=== PATIENT | female | born 1985 | race Caucasian/White ===

== ENCOUNTER 2020-01-09 08:20 | Day surgery (SDC) | payer OTHER ==
[~2020-01-09 08:20] MED LIST: Lidocaine 2% 5 ML SDV ONE; Midazolam 1 MG/ML 2 ML SDV ONE; Ondansetron 4 MG/2 ML SDV ONE; Propofol 200 MG/20 ML SDV ONE; fentaNYL 250 MCG/5 ML SDV ONE
[2020-01-09] MEDS ORDERED: Lactated Ringers 1,000 ML IV SCH (09:00)
--- NOTE | 2020-01-09 09:07 | PCM.PREANE ---
Preanesthetic Assessment - Anesthesia/Transfusion/Family Hx Anesthesia History: Prior Anesthesia Without Reaction Family History of Anesthesia Reaction: No Transfusion History: No Prior Transfusion(s) Intubation History: Unknown - Review of Systems General: No Symptoms Pulmonary: No Symptoms Cardiovascular: No Symptoms Gastrointestinal: No Symptoms Neurological: No Symptoms Other: Reports: None - Physical Assessment Vital Signs: Last Vital Signs Temp 36.5 C 01/09/20 08:29 Pulse 57 L 01/09/20 08:29 Resp 16 01/09/20 08:29 BP 109/67 01/09/20 08:29 Pulse Ox 98 01/09/20 08:29 Height: 5 ft 4 in Weight: 58.967 kg ASA Class: 2 Mental Status: Alert & Oriented x3 Airway Class: Mallampati = 2 Dentition: Reports: Normal Dentition Thyro-Mental Finger Breadths: 3 Mouth Opening Finger Breadths: 3 ROM/Head Extension: Full Lungs: Clear to Auscultation, Normal Respiratory Effort Cardiovascular: Regular Rate, Regular Rhythm - Lab Values: Laboratory Last Values WBC 4.79 K/uL (4.0-11.0) 01/09/20 08:42 RBC 3.74 M/uL (4.30-5.90) L 01/09/20 08:42 Hgb 12.2 g/dL (12.0-16.0) 01/09/20 08:42 Hct 36.8 % (36.0-46.0) 01/09/20 08:42 MCV 98.4 fL (80.0-98.0) H 01/09/20 08:42 MCH 32.6 pg (27.0-32.0) H 01/09/20 08:42 MCHC 33.2 g/dL (31.0-37.0) 01/09/20 08:42 RDW Std Deviation 46.2 fl (28.0-62.0) 01/09/20 08:42 RDW Coeff of Ángel 13 % (11.0-15.0) 01/09/20 08:42 Plt Count 228 K/uL (150-400) 01/09/20 08:42 MPV 8.70 fL (7.40-12.00) 01/09/20 08:42 Nucleated RBC % 0.0 /100WBC 01/09/20 08:42 Nucleated RBCs # 0 K/uL 01/09/20 08:42 - Allergies Allergies/Adverse Reactions: Allergies Allergy/AdvReac Type Severity Reaction Status Date / Time amoxicillin Allergy "I get Verified 01/05/20 08:25 ulcers in my mouth" - Blood Blood Available: No - Anesthesia Plan Pre-Op Medication Ordered: None - Acknowledgements Anesthesia Type Planned: General Anesthesia Pt an Appropriate Candidate for the Planned Anesthesia: Yes Alternatives and Risks of Anesthesia Discussed w Pt/Guardian: Yes Pt/Guardian Understands and Agrees with Anesthesia Plan: Yes PreAnesthesia Questionnaire HEENT History: Reports: None Cardiovascular History: Reports: None Respiratory History: Reports: None Gastrointestinal History: Reports: None Genitourinary History: Reports: None 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 SPECIALIST History: Reports: , Other (See Below) (missed ) Musculoskeletal History: Reports: None Neurological History: Reports: Migraines Psychiatric History: Reports: Anxiety, Depression Endocrine/Metabolic History: Reports: None Hematologic History: Reports: None Immunologic History: Reports: None Oncologic (Cancer) History: Reports: None Dermatologic History: Reports: None - Past Surgical History Head Surgeries/Procedures: Reports: None HEENT Surgical History: Reports: Oral Surgery Cardiovascular Surgical History: Reports: None Respiratory Surgical History: Reports: None GI Surgical History: Reports: None Female Surgical History: Reports: Section (x2), Other (See Below) (colposcopy) Endocrine Surgical History: Reports: None Neurological Surgical History: Reports: None Musculoskeletal Surgical History: Reports: None Oncologic Surgical History: Reports: None Dermatological Surgical History: Reports: None - SUBSTANCE USE Smoking Status *Q: Former Smoker (quit 10 years ago) Tobacco Use Within Last Twelve Months: No - HOME MEDS Home Medications: Home Meds Sertraline HCl [Zoloft] 50 mg PO DAILY 01/05/20 [History] - CURRENT (IN HOUSE) MEDS Current Meds: Current Medications Lactated Ringer's (Ringers, Lactated) 1,000 mls @ 125 mls/hr IV ASDIRECTED JENNIFER Discontinued Medications Fentanyl (Sublimaze) Confirm Administered Dose 250 mcg .ROUTE .STK-MED ONE Stop: 01/09/20 07:16 Lidocaine (Xylocaine-Mpf 2%) Confirm Administered Dose 5 ml .ROUTE .STK-MED ONE Stop: 01/09/20 07:16 Midazolam HCl (Versed 1 Mg/Ml) Confirm Administered Dose 2 mg .ROUTE .STK-MED ONE Stop: 01/09/20 07:16 Ondansetron HCl (Zofran) Confirm Administered Dose 4 mg .ROUTE .STK-MED ONE Stop: 01/09/20 07:16 Propofol (Diprivan 20 Ml) Confirm Administered Dose 200 mg .ROUTE .STK-MED ONE Stop: 01/09/20 07:16
[2020-01-09] MEDS ORDERED: Glycopyrrolate 0.2 MG/ML SDV ONE ×2 (09:31→09:33)
[2020-01-09] MEDS ORDERED: 50% Dextrose in Water 50 ML Syringe IVPUSH PRN (09:40)
[2020-01-09] MEDS ORDERED: EPINEPHrine 1:10,000 1 MG/10 ML Syringe IVPUSH PRN (09:40)
[2020-01-09] MEDS ORDERED: fentaNYL 100 MCG/2 ML SDV IVPUSH PRN (09:40)
[2020-01-09] MEDS ORDERED: Albuterol 0.083% 2.5 MG/3 ML Neb Soln NEB PRN (09:40)
[2020-01-09] MEDS ORDERED: Atropine 0.1 MG/ML 10 ML Syringe IVPUSH PRN ×2 (09:40)
[2020-01-09] MEDS ORDERED: Naloxone 0.4 MG/ML Syringe IVPUSH PRN (09:40)
[2020-01-09] MEDS ORDERED: Ketorolac 30 MG/ML SDV ONE (09:50)
--- NOTE | 2020-01-09 10:06 | PCM.OPNOTE ---
- General Post-Op/Procedure Note Date of Surgery/Procedure: 01/09/20 Operative Procedure(s): Suction dilation and curettage Findings: 7 week size, anteverted uterus Pre Op Diagnosis: Missed Post-Op Diagnosis: Missed Anesthesia Technique: General LMA Primary Surgeon: Emely Guerra Pathology: Products of conception Fluid Replacement, Intraop: 1,000 Output, Urine Amount: 25 EBL in mLs: 10 Condition: Good Free Text/Narrative:: Intake & Output 01/08/20 01/09/20 01/09/20 22:59 06:59 14:59 Output Total 50 Balance -50
--- NOTE | 2020-01-09 10:19 | PCM.POSTAN ---
POST ANESTHESIA ASSESSMENT - MENTAL STATUS Mental Status: Alert, Oriented - VITAL SIGNS Vital Signs: Last Vital Signs Temp 36.1 C 01/09/20 09:55 Pulse 85 01/09/20 10:11 Resp 16 01/09/20 10:11 BP 98/60 01/09/20 10:11 Pulse Ox 98 01/09/20 10:11 - RESPIRATORY Respiratory Status: Respiratory Rate WNL, Airway Patent, O2 Saturation Stable - CARDIOVASCULAR CV Status: Pulse Rate WNL, Blood Pressure Stable - GASTROINTESTINAL GI Status: No Symptoms - PAIN Pain Score: 0 - POST OP HYDRATION Hydration Status: Adequate & Stable - OBSERVATIONS Free Text/Narrative:: No anesthesia problems
--- NOTE | 2020-01-09 10:46 | PCM48HPAN ---
Post Anesthesia Note - EVALUATION WITHIN 48HRS OF ANESTHETIC Vital Signs in Normal Range: Yes Patient Participated in Evaluation: Yes Respiratory Function Stable: Yes Airway Patent: Yes Cardiovascular Function Stable: Yes Hydration Status Stable: Yes Pain Control Satisfactory: Yes Nausea and Vomiting Control Satisfactory: Yes Mental Status Recovered: Yes Vital Signs: Last Vital Signs Temp 36.1 C 01/09/20 09:55 Pulse 85 01/09/20 10:11 Resp 16 01/09/20 10:11 BP 98/60 01/09/20 10:11 Pulse Ox 98 01/09/20 10:11 - COMMENTS/OBSERVATIONS Free Text/Narrative:: No anesthesia problems
--- NOTE | 2020-01-09 17:56 | OR ---
DATE OF PROCEDURE: 01/09/2020 PREOPERATIVE DIAGNOSIS: 7-week missed . POSTOPERATIVE DIAGNOSIS: 7-week missed . PROCEDURE: Suction dilation and curettage. PRIMARY SURGEON: Emely Guerra MD HAY FARMER: ZARI Pavon. ANESTHESIA: LMA. COMPLICATIONS: None. ESTIMATED BLOOD LOSS: 10 mL. INTRAVENOUS FLUIDS: 1000 mL of crystalloid. URINE OUTPUT: 25 mL, straight catheterized prior to the procedure. FINDINGS: 7-week size anteverted uterus. PATHOLOGY: Products of conception. DESCRIPTION OF PROCEDURE: The patient was taken to the operating room where anesthesia was induced. She was then prepped and draped in the dorsal lithotomy position. An open-sided Graves speculum was placed into the vagina to visualize the cervix. An Allis clamp was used to grasp the cervix at 12 o'clock, and series of Hegar dilators were used to dilate the cervix to Hegar 8. During dilation, the Allis clamp inadvertently slipped off the cervix, and a tenaculum was used in its place to stabilize the cervix to complete dilation. A #8 curved suction curette was advanced to the fundus. It was attached to suction and rotated to clear the uterus of products of conception. A sharp curettage was performed until a gritty texture was noted. A suction curettage was then performed once more. Minimal bleeding was noted, and the tenaculum was removed with good hemostasis. The patient tolerated the procedure well. Sponge, lap, and needle counts were correct x2. The patient was taken to recovery in stable condition. [place] / JIHAN /[id number] MTDChandler
== END 2020-01-09 10:50 | disposition home or self-care (01) ==
LOC: MW.SDS 08:20
PROVIDERS: ATTEND Obstetrics & Gynecology
DX: O02.89 Other abnormal products of conception (principal); F41.9 Anxiety disorder, unspecified; F32.9 Major depressive disorder, single episode, unspecified; Z88.0 Allergy status to penicillin; Z87.891 Personal history of nicotine dependence; Z79.899 Other long term (current) drug therapy
CPT/HCPCS: 36415; 59820; 85027; 88233; 88305; J1885; J2001; J2250; J2405; J2704; J3010; J3490; J7120; 01965

== ENCOUNTER 2020-02-27 22:01 | Emergency (ER) | payer OTHER ==
[2020-02-27] MEDS ORDERED: Sodium Chloride 0.9% 2.5 ML Syringe FLUSH PRN (22:29)
[2020-02-27] MEDS ORDERED: Sodium Chloride 0.9% 10 ML Syringe FLUSH PRN (22:29)
--- NOTE | 2020-02-27 22:31 | EDM.PDOC ---
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 Bright red blood was gushing from her vagina. She did not feel like there was any injury. She is continue to have blood flow but not "gushing"-she does feel a little hot when she stands up but has not had any syncope or near syncope. She does feel little lightheaded. Finished her menstrual period The patient thought she had finished her menstrual period earlier today. In the beginning of January she had an 8-week and the ultrasound showed it to be 7 weeks with some detachment of the placenta. She went ahead and had an incomplete miscarriage and had a D&C subsequently. She had been given RhoGam in the past but they elected not to give her RhoGam this time because of the early nature of the according to the patient. Review of systems: As per history of present illness and below otherwise all systems reviewed and negative. Past medical history: As per history of present illness and as reviewed below otherwise noncontributory. Surgical history: As per history of present illness and as reviewed below otherwise noncontributory. Social history: No reported history of drug or alcohol abuse. Family history: As per history of present illness and as reviewed below otherwise noncontributory. Physical exam: Constitutional - well developed, well-nourished and in no acute distress HEENT - normocephalic, no evidence of trauma - external nose and mouth normal - no mass in neck and no JVD - mucosae moist EYES - full EOM, PERRL, no icterus - no evidence of inflammation, injection, or drainage Respiratory - no respiratory distress, equal bilateral expansion MACARONI MAKER -BUS normal-scant blood in the vagina. Speculum exam was done and there is no active bleeding and no laceration. Musculoskeletal no gross deformity of long bones or joints - no tenderness, swelling or edema Neurologic - Alert and oriented times four - CN II-XII grossly intact - motor sensory and coordination symmetrically normal Psychiatric - appropriate mood and affect with normal thought content Hematologic - No petechiae or purpura - mucosa appropriate color and sclera not pale - normal nail bed color and refill Integument - no rash or evidence of trauma - normal turgor Diagnostics: [] Therapeutics: [] Impression: [] Plan: [] Definitive disposition and diagnosis as appropriate pending reevaluation and review of above. 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: , Spontaneous Musculoskeletal History: Reports: None Neurological History: Reports: Migraines Psychiatric History: Reports: Anxiety, Depression Endocrine/Metabolic History: Reports: None Insulin Pump Model and Laboratory Associate: None Hematologic History: Reports: None Immunologic History: Reports: None Oncologic (Cancer) History: Reports: None Dermatologic History: Reports: None - Infectious Disease History Infectious Disease History: Reports: None - Past Surgical History Head Surgeries/Procedures: Reports: None HEENT Surgical History: Reports: Oral Surgery Cardiovascular Surgical History: Reports: None Respiratory Surgical History: Reports: None GI Surgical History: Reports: None Female Surgical History: Reports: Section Endocrine Surgical History: Reports: None Neurological Surgical History: Reports: None Musculoskeletal Surgical History: Reports: None Oncologic Surgical History: Reports: None Dermatological Surgical History: Reports: None Social & Family History - Family History Family Medical History: Noncontributory - Tobacco Use Tobacco Use Status *Q: Never Tobacco User - Caffeine Use Caffeine Use: Reports: Coffee - Recreational Drug Use Recreational Drug Use: No ED ROS GENERAL - Review of Systems Review Of Systems: Comprehensive ROS is negative, except as noted in HPI. ED EXAM, GENERAL - Physical Exam Exam: See Below Free Text/Narrative:: My physical exam is in the HPI Course - Vital Signs Text/Narrative:: 12:02 AM the patient is a hCG of 6.0 which is almost certainly residual from the recent D&C. She apparently did not have a complete never uterus with the current menstrual period and the other plug of the cervix was broken up during routine and painless sexual intercourse. The patient will be advised to have an hCG repeated in 2 or more days to make sure that there is no possibility of retained products Last Recorded V/S: Last Vital Signs Temp 96.7 F L 02/27/20 22:15 Pulse 76 02/27/20 23:30 Resp 18 02/27/20 23:30 BP 102/66 02/27/20 23:30 Pulse Ox 96 02/27/20 23:30 - Orders/Labs/Meds Orders: Active Orders 24 hr Category Date Time Status Communication Order [RC] STAT Care 02/27/20 22:29 Active Sodium Chloride 0.9% [Saline Flush] Med 02/27/20 22:29 Active 10 ml FLUSH ASDIRECTED PRN Sodium Chloride 0.9% [Saline Flush] Med 02/27/20 22:29 Active 2.5 ml FLUSH ASDIRECTED PRN Saline Lock Insert [OM.PC] Stat Oth 02/27/20 22:29 Ordered Medication Orders Sodium Chloride (Saline Flush) 10 ml FLUSH ASDIRECTED PRN PRN Reason: Keep Vein Open Sodium Chloride (Saline Flush) 2.5 ml FLUSH ASDIRECTED PRN PRN Reason: Keep Vein Open Labs: Laboratory Tests 02/27/20 02/27/20 02/27/20 Range/Units 22:37 22:37 22:37 WBC 7.01 (4.0-11.0) K/uL RBC 3.76 L (4.30-5.90) M/uL Hgb 12.5 (12.0-16.0) g/dL Hct 37.7 (36.0-46.0) % MCV 100.3 H (80.0-98.0) fL MCH 33.2 H (27.0-32.0) pg MCHC 33.2 (31.0-37.0) g/dL RDW Std Deviation 47.9 (28.0-62.0) fl RDW Coeff of Ángel 13 (11.0-15.0) % Plt Count 227 (150-400) K/uL MPV 8.60 (7.40-12.00) fL Neut % (Auto) 48.4 (48.0-80.0) % Lymph % (Auto) 43.8 H (16.0-40.0) % Braxton % (Auto) 5.8 (0.0-15.0) % Eos % (Auto) 1.9 (0.0-7.0) % Baso % (Auto) 0.1 (0.0-1.5) % Neut # (Auto) 3.4 (1.4-5.7) K/uL Lymph # (Auto) 3.1 H (0.6-2.4) K/uL Braxton # (Auto) 0.4 (0.0-0.8) K/uL Eos # (Auto) 0.1 (0.0-0.7) K/uL Baso # (Auto) 0.0 (0.0-0.1) K/uL Nucleated RBC % 0.0 /100WBC Nucleated RBCs # 0 K/uL Sodium 137 (136-145) mmol/L Potassium 3.3 L (3.5-5.1) mmol/L Chloride 103 (98-107) mmol/L Carbon Dioxide 23.3 (21.0-32.0) mmol/L BUN 18 (7.0-18.0) mg/dL Creatinine 0.6 (0.6-1.0) mg/dL Est Cr Clr Drug Dosing 115.16 mL/min Estimated GFR (MDRD) > 60.0 ml/min Glucose 106 (74-106) mg/dL Calcium 8.7 (8.5-10.1) mg/dL HCG, Qual POSITIVE H (NEG) HCG, Quant mIU/mL 02/27/20 Range/Units 22:37 WBC (4.0-11.0) K/uL RBC (4.30-5.90) M/uL Hgb (12.0-16.0) g/dL Hct (36.0-46.0) % MCV (80.0-98.0) fL MCH (27.0-32.0) pg MCHC (31.0-37.0) g/dL RDW Std Deviation (28.0-62.0) fl RDW Coeff of Ángel (11.0-15.0) % Plt Count (150-400) K/uL MPV (7.40-12.00) fL Neut % (Auto) (48.0-80.0) % Lymph % (Auto) (16.0-40.0) % Braxton % (Auto) (0.0-15.0) % Eos % (Auto) (0.0-7.0) % Baso % (Auto) (0.0-1.5) % Neut # (Auto) (1.4-5.7) K/uL Lymph # (Auto) (0.6-2.4) K/uL Braxton # (Auto) (0.0-0.8) K/uL Eos # (Auto) (0.0-0.7) K/uL Baso # (Auto) (0.0-0.1) K/uL Nucleated RBC % /100WBC Nucleated RBCs # K/uL Sodium (136-145) mmol/L Potassium (3.5-5.1) mmol/L Chloride (98-107) mmol/L Carbon Dioxide (21.0-32.0) mmol/L BUN (7.0-18.0) mg/dL Creatinine (0.6-1.0) mg/dL Est Cr Clr Drug Dosing mL/min Estimated GFR (MDRD) ml/min Glucose (74-106) mg/dL Calcium (8.5-10.1) mg/dL HCG, Qual (NEG) HCG, Quant 6.0 mIU/mL Meds: Medications Generic Name Dose Route Start Last Admin Trade Name Freq PRN Reason Stop Dose Admin Sodium Chloride 10 ml 02/27/20 22:29 Saline Flush FLUSH ASDIRECTED PRN Keep Vein Open Sodium Chloride 2.5 ml 02/27/20 22:29 Saline Flush FLUSH ASDIRECTED PRN Keep Vein Open Departure - Departure Time of Disposition: 00:05 Disposition: Home, Self-Care 01 Condition: Good Clinical Impression: Vaginal bleeding - Discharge Information Instructions: Abnormal Uterine Bleeding Referrals: PCP,None [Primary Care Provider] - Forms: ED Department Discharge Additional Instructions: Please have an hCG checked your clinic doctors in 2 or more days to make sure that the number is not rising. If it is rising it could indicate a new gestation or an incomplete believe all of the contents from the prior gestation from your uterus. Number tonight is 6.0 mIU/ml Return if you have fever feel like you are passing out a lot of sweating with weakness severe pain. [facility] [address] [place] [id number] [facility] [address] [address] The following information is given to patients seen in the emergency department who are being discharged to home. This information is to outline your options for follow-up care. We provide all patients seen in our emergency department with a follow-up referral. The need for follow-up, as well as the timing and circumstances, are variable depending upon the specifics of your emergency department visit. If you don't have a primary care physician on staff, we will provide you with a referral. We always advise you to contact your personal physician following an emergency department visit to inform them of the circumstance of the visit and for follow-up with them and/or the need for any referrals to a consulting specialist. The emergency department will also refer you to a specialist when appropriate. This referral assures that you have the opportunity for follow-up care with a specialist. All of these measure are taken in an effort to provide you with optimal care, which includes your follow-up. Under all circumstances we always encourage you to contact your private physician who remains a resource for coordinating your care. When calling for follow-up care, please make the office aware that this follow-up is from your recent emergency room visit. If for any reason you are refused follow-up, please contact the [facility] Emergency Department at and asked to speak to the emergency department charge nurse. Sepsis Event Note (ED) - Evaluation Sepsis Screening Result: No Definite Risk - Focused Exam Vital Signs: Vital Signs Temp Pulse Resp BP Pulse Ox 02/27/20 23:30 76 18 102/66 96 02/27/20 22:15 96.7 F L 79 18 115/78 98 - My Orders Last 24 Hours: My Active Orders 02/27/20 22:29 Communication Order [RC] STAT Sodium Chloride 0.9% [Saline Flush] 10 ml FLUSH ASDIRECTED PRN Sodium Chloride 0.9% [Saline Flush] 2.5 ml FLUSH ASDIRECTED PRN Saline Lock Insert [OM.PC] Stat - Assessment/Plan Last 24 Hours: My Active Orders 02/27/20 22:29 Communication Order [RC] STAT Sodium Chloride 0.9% [Saline Flush] 10 ml FLUSH ASDIRECTED PRN Sodium Chloride 0.9% [Saline Flush] 2.5 ml FLUSH ASDIRECTED PRN Saline Lock Insert [OM.PC] Stat
[2020-02-27 22:58] LABS: BLOOD UREA NITROGEN,BUN 18 mg/dL (7.0-18.0); CARBON DIOXIDE,CO2 23.3 mmol/L (21.0-32.0); CHLORIDE,CL 103 mmol/L (98-107); GLUCOSE RANDOM 106 mg/dL (74-106); POTASSIUM,K 3.3 mmol/L (3.5-5.1); SODIUM,NA 137 mmol/L (136-145)
== END 2020-02-28 00:19 | disposition home or self-care (01) ==
LOC: MW.ED 22:01
DX: N93.9 Abnormal uterine and vaginal bleeding, unspecified (principal); Z88.1 Allergy status to other antibiotic agents; F32.9 Major depressive disorder, single episode, unspecified; Z79.899 Other long term (current) drug therapy; F41.9 Anxiety disorder, unspecified
CPT/HCPCS: 36415; 80048; 84702; 84703; 85025; 99284

== ENCOUNTER 2020-03-19 06:57 | Day surgery (SDC) | payer OTHER ==
[~2020-03-19 06:57] MED LIST changes: +Lactated Ringers 1,000 ML IV SCH; -Lidocaine 2% 5 ML SDV ONE; -Midazolam 1 MG/ML 2 ML SDV ONE; -Ondansetron 4 MG/2 ML SDV ONE; -Propofol 200 MG/20 ML SDV ONE; -fentaNYL 250 MCG/5 ML SDV ONE
[2020-03-19] MEDS ORDERED: Lidocaine 2% 5 ML SDV ONE (07:01)
[2020-03-19] MEDS ORDERED: fentaNYL 250 MCG/5 ML SDV ONE (07:01)
[2020-03-19] MEDS ORDERED: Propofol 200 MG/20 ML SDV ONE (07:01)
[2020-03-19] MEDS ORDERED: Ondansetron 4 MG/2 ML SDV ONE (07:01)
[2020-03-19] MEDS ORDERED: Midazolam 1 MG/ML 2 ML SDV ONE (07:01)
[2020-03-19] MEDS ORDERED: Naloxone 0.4 MG/ML Syringe IVPUSH PRN (07:21)
[2020-03-19] MEDS ORDERED: Sodium Chloride 0.9% 10 ML Syringe FLUSH PRN (07:21)
[2020-03-19] MEDS ORDERED: EPINEPHrine 1:10,000 1 MG/10 ML Syringe IVPUSH PRN (07:21)
[2020-03-19] MEDS ORDERED: Albuterol 0.083% 2.5 MG/3 ML Neb Soln NEB PRN (07:21)
[2020-03-19] MEDS ORDERED: Atropine 0.1 MG/ML 10 ML Syringe IVPUSH PRN ×2 (07:21)
[2020-03-19] MEDS ORDERED: Sodium Chloride 0.9% 10 ML SDV IV PRN (07:21)
[2020-03-19] MEDS ORDERED: fentaNYL 100 MCG/2 ML SDV IVPUSH PRN (07:21)
[2020-03-19] MEDS ORDERED: Sodium Chloride 0.9% 2.5 ML Syringe FLUSH PRN (07:21)
[2020-03-19] MEDS ORDERED: 50% Dextrose in Water 50 ML Syringe IVPUSH PRN (07:21)
--- NOTE | 2020-03-19 07:21 | PCM.PREANE ---
Preanesthetic Assessment - Anesthesia/Transfusion/Family Hx Anesthesia History: Prior Anesthesia Without Reaction Family History of Anesthesia Reaction: No Transfusion History: No Prior Transfusion(s) Intubation History: Unknown - Review of Systems General: No Symptoms Pulmonary: No Symptoms Cardiovascular: No Symptoms Gastrointestinal: No Symptoms Neurological: No Symptoms Other: Reports: None - Physical Assessment Height: 5 ft 4 in Weight: 59.421 kg ASA Class: 2 Mental Status: Alert & Oriented x3 Airway Class: Mallampati = 1 Dentition: Reports: Normal Dentition Thyro-Mental Finger Breadths: 3 Mouth Opening Finger Breadths: 3 ROM/Head Extension: Full Lungs: Clear to Auscultation, Normal Respiratory Effort Cardiovascular: Regular Rate, Regular Rhythm - Allergies Allergies/Adverse Reactions: Allergies Allergy/AdvReac Type Severity Reaction Status Date / Time amoxicillin Allergy "I get Verified 03/14/20 09:17 ulcers in my mouth" - Blood Blood Available: No - Anesthesia Plan Pre-Op Medication Ordered: None - Acknowledgements Anesthesia Type Planned: General Anesthesia Pt an Appropriate Candidate for the Planned Anesthesia: Yes Alternatives and Risks of Anesthesia Discussed w Pt/Guardian: Yes Pt/Guardian Understands and Agrees with Anesthesia Plan: Yes PreAnesthesia Questionnaire HEENT History: Reports: None Cardiovascular History: Reports: None Respiratory History: Reports: None Gastrointestinal History: Reports: None Genitourinary History: Reports: None 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: , 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 (2-3 weeks ago) Musculoskeletal History: Reports: None Neurological History: Reports: Migraines Psychiatric History: Reports: Anxiety, Depression Endocrine/Metabolic History: Reports: None Hematologic History: Reports: None Immunologic History: Reports: None Oncologic (Cancer) History: Reports: None Dermatologic History: Reports: None - Infectious Disease History Infectious Disease History: Reports: None - Past Surgical History Head Surgeries/Procedures: Reports: None HEENT Surgical History: Reports: Oral Surgery Cardiovascular Surgical History: Reports: None Respiratory Surgical History: Reports: None GI Surgical History: Reports: None Female Surgical History: Reports: Section (x2), D&C (01/20), Other (See Below) (colposcopy) Endocrine Surgical History: Reports: None Neurological Surgical History: Reports: None Musculoskeletal Surgical History: Reports: None Oncologic Surgical History: Reports: None Dermatological Surgical History: Reports: None - SUBSTANCE USE Tobacco Use Status *Q: Former Tobacco User (quit ') Tobacco Use Within Last Twelve Months: No - HOME MEDS Home Medications: Home Meds Sertraline HCl [Zoloft] 50 mg PO DAILY 01/05/20 [History] Vitamin Pack 1 pack PO DAILY 03/14/20 [History] - CURRENT (IN HOUSE) MEDS Current Meds: Current Medications Lactated Ringer's (Ringers, Lactated) 1,000 mls @ 125 mls/hr IV ASDIRECTED JENNIFER Discontinued Medications Fentanyl (Sublimaze) Confirm Administered Dose 250 mcg .ROUTE .STK-MED ONE Stop: 03/19/20 07:02 Lidocaine (Xylocaine-Mpf 2%) Confirm Administered Dose 5 ml .ROUTE .STK-MED ONE Stop: 03/19/20 07:02 Midazolam HCl (Versed 1 Mg/Ml) Confirm Administered Dose 2 mg .ROUTE .STK-MED ONE Stop: 03/19/20 07:02 Ondansetron HCl (Zofran) Confirm Administered Dose 4 mg .ROUTE .STK-MED ONE Stop: 03/19/20 07:02 Propofol (Diprivan 20 Ml) Confirm Administered Dose 200 mg .ROUTE .STK-MED ONE Stop: 03/19/20 07:02
[2020-03-19] MEDS ORDERED: Lactated Ringers 1,000 ML IV SCH (07:30)
[2020-03-19] MEDS ORDERED: Glycopyrrolate 0.2 MG/ML SDV ONE ×2 (08:04→08:07)
--- NOTE | 2020-03-19 09:00 | PCM.OPNOTE ---
- General Post-Op/Procedure Note Date of Surgery/Procedure: 03/19/20 Operative Procedure(s): Hysteroscopy dilation and curettage. Myosure Findings: Anteverted uterus sounded to 9cm. Tissue consistent with retained products of conception adhered to the anterior uterine wall within the lower uterine segment. Right and left cornea visualized. Pre Op Diagnosis: Abnormal vaginal bleeding after missed Post-Op Diagnosis: Same Anesthesia Technique: General LMA Primary Surgeon: Emely Guerra Anesthesia Provider: Vel Sandhu Airplane Pilot Photogrammetry: Carl Tobin Pathology: Endometrial contents Fluid Replacement, Intraop: 700 EBL in mLs: 10 Drain/Tube Comments:: 900cc deficit from hysteroscopy and Myosure procedures Complications: None known Condition: Good Free Text/Narrative:: Dictation #[id number]
[2020-03-19] MEDS ORDERED: Meperidine PF 25 MG/ML Syringe IVPUSH ONE (09:04)
[2020-03-19] MEDS ORDERED: Meperidine PF 25 MG/ML Syringe ONE (09:06)
--- NOTE | 2020-03-19 09:19 | PCM.POSTAN ---
POST ANESTHESIA ASSESSMENT - MENTAL STATUS Mental Status: Alert, Oriented - VITAL SIGNS Vital Signs: Last Vital Signs Temp 36.2 C 03/19/20 08:47 Pulse 97 03/19/20 09:13 Resp 17 03/19/20 09:13 BP 109/82 03/19/20 09:13 Pulse Ox 99 03/19/20 09:13 - RESPIRATORY Respiratory Status: Respiratory Rate WNL, Airway Patent, O2 Saturation Stable - CARDIOVASCULAR CV Status: Pulse Rate WNL, Blood Pressure Stable - GASTROINTESTINAL GI Status: No Symptoms - PAIN Pain Score: 0 - POST OP HYDRATION Hydration Status: Adequate & Stable - OBSERVATIONS Free Text/Narrative:: NO anesthesia problems
[2020-03-19] MEDS ORDERED: Acetaminophen/oxyCODONE 325-5 MG Tab PO PRN (09:46)
[2020-03-19] MEDS ORDERED: Acetaminophen/oxyCODONE 325-5 MG Tab ONE (09:49)
--- NOTE | 2020-03-19 10:04 | PCM48HPAN ---
Post Anesthesia Note - EVALUATION WITHIN 48HRS OF ANESTHETIC Vital Signs in Normal Range: Yes Patient Participated in Evaluation: Yes Respiratory Function Stable: Yes Airway Patent: Yes Cardiovascular Function Stable: Yes Hydration Status Stable: Yes Pain Control Satisfactory: Yes Nausea and Vomiting Control Satisfactory: Yes Mental Status Recovered: Yes Vital Signs: Last Vital Signs Temp 36.2 C 03/19/20 08:47 Pulse 97 03/19/20 09:13 Resp 17 03/19/20 09:13 BP 109/82 03/19/20 09:13 Pulse Ox 99 03/19/20 09:13 - COMMENTS/OBSERVATIONS Free Text/Narrative:: No anesthesia problems
--- NOTE | 2020-03-19 10:48 | OR ---
SURGEON: EMELY GUERRA MD DATE OF PROCEDURE: 03/19/2020 PREOPERATIVE DIAGNOSIS: Abnormal uterine bleeding following missed . POSTOPERATIVE DIAGNOSIS: Abnormal uterine bleeding following missed . PROCEDURES: 1. Hysteroscopy, dilation and curettage. 2. MyoSure curettage. PRIMARY SURGEON: Emely Guerra MD MANAGER DATA: Dr. Carl Tobin. ANESTHESIA: LMA. COMPLICATIONS: None. ESTIMATED BLOOD LOSS: 10 mL. IV FLUIDS: 700 mL of crystalloid. FLUID DEFICIT FROM PROCEDURE: 900 mL. FINDINGS: Anteverted uterus sounded to 9 cm. Tissue consistent with retained products of contraception, noted at the anterior uterine wall within the lower uterine segment. Right and left cornua were visualized. PATHOLOGY: Endometrial contents. DESCRIPTION OF PROCEDURE: The patient was taken to the operating room where anesthesia was introduced. She was then prepped and draped in the dorsal lithotomy position. Bimanual exam was performed. A weighted speculum and anterior retractor were then used to visualize the cervix and it was grasped with an Allis at the 6 o'clock position due to the anteverted nature of the uterus. Uterus was then sounded to 9 cm and cervix dilated to 8 Hegar. The hysteroscope was then inserted into the cervix and the uterus. Right and left ostia were visualized. MyoSure was then inserted through the hysteroscope and the tissue from the anterior portion of the lower uterine segment was removed. The hysteroscope was then removed after hemostasis was assured. Light, sharp curettage was then performed until a gritty texture was noted. Endometrial contents were sent to Pathology. Bleeding was minimal. All instruments were removed from the vagina. Hemostasis was noted. The patient tolerated the procedure well. Sponge, lap, and needle counts were correct x2. The patient was taken to recovery room in stable condition. [place] / JIHAN /[id number] DIDI
== END 2020-03-19 10:04 | disposition home or self-care (01) ==
LOC: MW.SDS 06:57
PROVIDERS: ATTEND Obstetrics & Gynecology
DX: O02.1 Missed abortion (principal); F32.9 Major depressive disorder, single episode, unspecified; F41.9 Anxiety disorder, unspecified; Z79.899 Other long term (current) drug therapy; Z98.890 Other specified postprocedural states; Z87.891 Personal history of nicotine dependence; Z88.1 Allergy status to other antibiotic agents
CPT/HCPCS: 58558; 84703; 85027; A9270; J2001; J2175; J2250; J2405; J2704; J3010; J3490; J7120; 00952; 88305

== ENCOUNTER 2020-06-23 14:48 | Emergency (ER) | payer BC ==
[2020-06-23] MEDS ORDERED: Sodium Chloride 0.9% 1,000 ML IV ONE (14:53)
[2020-06-23] MEDS ORDERED: Sodium Chloride 0.9% 2.5 ML Syringe FLUSH PRN (14:53)
[2020-06-23] MEDS ORDERED: Sodium Chloride 0.9% 10 ML Syringe FLUSH PRN (14:53)
--- NOTE | 2020-06-23 15:11 | EDM.PDOC ---
ED HPI GENERAL MEDICAL PROBLEM - General Chief Complaint: IT BUSINESS PROCESS ARCHITECT Problem Stated Complaint: BLEEDING 13 WEEKS Time Seen by Provider: 06/23/20 14:52 Source of Information: Reports: Patient History Limitations: Reports: No Limitations - History of Present Illness INITIAL COMMENTS - FREE TEXT/NARRATIVE: HISTORY AND PHYSICAL: History of present illness: Patient is a 34-year-old female who presents to the emergency room with complaints of painless vaginal bleeding. She states she is approximately 12 weeks , has had high risk pregnancies in the past due to multiple miscarriages. This morning she went to the bathroom and had a "gush of blood" as she was voiding. She did call the on-call IT BUSINESS PROCESS ARCHITECT for recommendations, she was encouraged to rest the remainder of the day. After she had a second episode of bleeding when she went to the bathroom she decided to come to the emergency room for evaluation. She did have some brown discharge approximately 1 week ago and was seen in the IT BUSINESS PROCESS ARCHITECT clinic, she was informed she had the start of a yeast infection. She did do 1 vaginal insert of Monistat. The on-call provider today thought maybe the bleeding was from irritation. She denies any recent pelvic injury or vigorous intercourse. Patient denies any fever, chills, headache, change in vision, syncope or near syncope. Denies any chest pain, back pain, shortness of breath or cough. Denies any abdominal pain, nausea, vomiting, diarrhea, constipation or dysuria. Patient has been eating and drinking appropriately. Review of systems: As per history of present illness and below otherwise all systems reviewed and negative. Past medical history: As per history of present illness and as reviewed below otherwise noncontributory. Surgical history: As per history of present illness and as reviewed below otherwise noncontributory. Social history: See social history for further information Family history: As per history of present illness and as reviewed below otherwise noncontributory. Physical exam: General: Well developed and well nourished. Alert and orientated x 3. Nontoxic in appearance and in no acute distress. Vital signs are stable and have been reviewed by me. Nursing notes were reviewed. HEENT: Atraumatic, normocephalic, pupils equal and reactive bilaterally, negative for conjunctival pallor or scleral icterus, mucous membranes moist, TMs normal bilaterally, throat clear, neck supple, nontender, trachea midline. No drooling or trismus noted. No meningeal signs. No hot potato voice noted. Lungs: Clear to auscultation bilaterally. No wheezes, rales, or rhonchi. Chest nontender. Normal work of breathing, no accessory muscles used. Heart: S1S2, regular rate and rhythm without overt murmur, gallops, or rubs. No JVD. No peripheral edema Abdomen: Soft, nondistended, nontender. Normoactive bowel sounds. Negative for masses or costovertebral tenderness. Pelvis: Stable nontender. Genitourinary/Rectal: This was done with consent and a cad administrator at the bedside. There is a small amount of blood in the vaginal vault. Her cervical os is closed without any active bleeding. No cervical motion tenderness. Skin: Intact, warm, dry. No lesions or rashes noted. Hematologic: No petechiae or purpra. Mucosa appropriate color and normal nail bed color and refill. Extremities: Atraumatic, moves all extremities per self without difficulty or deficits, negative for cords or calf pain. Neurovascular unremarkable. Neuro: Awake, alert, oriented. Cranial nerves II through XII unremarkable. Cerebellum unremarkable. Motor and sensory unremarkable throughout. Exam nonfocal. Psychiatric: Mood and affect are appropriate. Normal thought process. Answering questions appropriately. Notes: *This patient was seen and evaluated during the 2019 SARS-CoV-2 novel coronavirus pandemic period. Community viral transmission is ongoing at time of this encounter and the emergency department is operating under pandemic response procedures. Patient is A negative, requiring rhogam. Quant HCG 63843.0 today Ultrasound shows a live intrauterine gestation with crown-rump length measuring 5.9 centimeters corresponding to 12 weeks 3 days TOMA of 01/02/2021. Positive cardiac activity measures 129 beats per minute. Moderate perigestational hemorrhage with hemorrhage located along the placental margin. Recommend close follow-up. I called Dr Niurka Veloz [facility] on-call who is aware of today's findings. Patient is safe to be discharged home with close follow-up. She states she will call patient tomorrow to set up a follow up appointment. I have talked with the patient about today's findings, in addition to providing specific details for plan of care. Rhogam was given. VSS. Reassessment at the time of disposition demonstrates that the patient is in no acute distress. The patient is stable for discharge, counseling was provided and we discussed in great detail signs and symptoms that would prompt them to return to the [facility]. Medication, follow up and supportive care measures were reviewed and discussed. Voices understanding and is agreeable to plan of care. Denies any further questions or concerns at this time. Diagnostics: CBC, CMP, OB U/S, UA, Quant HCG, Rh/AB Therapeutics: Rhogam Prescription: None Impression: Threatened miscarriage Plan: 1. Please start and/or continue to take your vitamin with folic acid once daily. 2. Pelvic rest until cleared by your OBGYN (no tampons, sex, etc...) 3. Tylenol as needed for pain management. 4. Follow up with your IT BUSINESS PROCESS ARCHITECT in the next 1-2 days. Their office should be calling you tomorrow morning to set up your appointment. 5. As we discussed, please return to the ED if your symptoms should worsen, new symptoms develop or anything should change. Definitive disposition and diagnosis as appropriate pending reevaluation and review of above. - Related Data Allergies Allergy/AdvReac Type Severity Reaction Status Date / Time amoxicillin Allergy "I get Verified 06/23/20 14:57 ulcers in my mouth" Home Meds: Home Meds Sertraline HCl [Zoloft] 50 mg PO DAILY 01/05/20 [History] Vitamin Pack 1 pack PO DAILY 03/14/20 [History] Past Medical History HEENT History: Reports: None Cardiovascular History: Reports: None Respiratory History: Reports: None Gastrointestinal History: Reports: None Genitourinary History: Reports: None IT BUSINESS PROCESS ARCHITECT History: Reports: , Spontaneous Musculoskeletal History: Reports: None Neurological History: Reports: Migraines Psychiatric History: Reports: Anxiety, Depression Endocrine/Metabolic History: Reports: None Insulin Pump Model and File Keeper: None Hematologic History: Reports: None Immunologic History: Reports: None Oncologic (Cancer) History: Reports: None Dermatologic History: Reports: None - Infectious Disease History Infectious Disease History: Reports: None - Past Surgical History Head Surgeries/Procedures: Reports: None HEENT Surgical History: Reports: Oral Surgery Cardiovascular Surgical History: Reports: None Respiratory Surgical History: Reports: None GI Surgical History: Reports: None Female Surgical History: Reports: Section, D&C, Other (See Below) Endocrine Surgical History: Reports: None Neurological Surgical History: Reports: None Musculoskeletal Surgical History: Reports: None Oncologic Surgical History: Reports: None Dermatological Surgical History: Reports: None Social & Family History - Family History Family Medical History: No Pertinent Family History - Caffeine Use Caffeine Use: Reports: Coffee ED ROS GENERAL - Review of Systems Review Of Systems: Comprehensive ROS is negative, except as noted in HPI. ED EXAM - Physical Exam Exam: See Below (See dictation) Course - Vital Signs Last Recorded V/S: Last Vital Signs Temp 97 F 06/23/20 14:57 Pulse 80 06/23/20 14:57 Resp 16 06/23/20 14:57 BP 112/53 L 06/23/20 14:57 Pulse Ox 97 06/23/20 14:57 - Orders/Labs/Meds Orders: Active Orders 24 hr Category Date Time Status RH IMMUNE GLOBULIN [BBK] Stat Lab 06/23/20 15:30 Results RHOGAM, [RHIG WORKUP, ] [BBK] Stat Lab 06/23/20 15:30 Results Labs: Laboratory Tests 06/23/20 06/23/20 06/23/20 Range/Units 15:01 15:30 15:30 WBC 8.11 (4.0-11.0) K/uL RBC 3.73 L (4.30-5.90) M/uL Hgb 12.5 (12.0-16.0) g/dL Hct 36.4 (36.0-46.0) % MCV 97.6 (80.0-98.0) fL MCH 33.5 H (27.0-32.0) pg MCHC 34.3 (31.0-37.0) g/dL RDW Std Deviation 45.4 (28.0-62.0) fl RDW Coeff of Ángel 13 (11.0-15.0) % Plt Count 277 (150-400) K/uL MPV 8.60 (7.40-12.00) fL Neut % (Auto) 67.0 (48.0-80.0) % Lymph % (Auto) 25.3 (16.0-40.0) % Stearns % (Auto) 7.0 (0.0-15.0) % Eos % (Auto) 0.6 (0.0-7.0) % Baso % (Auto) 0.1 (0.0-1.5) % Neut # (Auto) 5.4 (1.4-5.7) K/uL Lymph # (Auto) 2.1 (0.6-2.4) K/uL Stearns # (Auto) 0.6 (0.0-0.8) K/uL Eos # (Auto) 0.1 (0.0-0.7) K/uL Baso # (Auto) 0.0 (0.0-0.1) K/uL Nucleated RBC % 0.0 /100WBC Nucleated RBCs # 0 K/uL Sodium 135 L (136-145) mmol/L Potassium 3.6 (3.5-5.1) mmol/L Chloride 101 (98-107) mmol/L Carbon Dioxide 23.7 (21.0-32.0) mmol/L BUN 10 (7.0-18.0) mg/dL Creatinine 0.6 (0.6-1.0) mg/dL Est Cr Clr Drug Dosing 115.16 mL/min Estimated GFR (MDRD) > 60.0 ml/min Glucose 83 (74-106) mg/dL Calcium 9.0 (8.5-10.1) mg/dL Total Bilirubin 0.2 (0.2-1.0) mg/dL AST 12 L (15-37) IU/L ALT 12 L (14-63) IU/L Alkaline Phosphatase 39 L (46-116) U/L Total Protein 7.3 (6.4-8.2) g/dL Albumin 3.3 L (3.4-5.0) g/dL Globulin 4.0 (2.6-4.0) g/dL Albumin/Globulin Ratio 0.8 L (0.9-1.6) HCG, Quant 40416.0 mIU/mL Urine Color YELLOW Urine Appearance CLEAR Urine pH 6.0 (5.0-8.0) Ur Specific Pierre Part 1.025 (1.001-1.035) Urine Protein NEGATIVE (NEGATIVE) mg/dL Urine Glucose (UA) NEGATIVE (NEGATIVE) mg/dL Urine Ketones NEGATIVE (NEGATIVE) mg/dL Urine Occult Blood LARGE H (NEGATIVE) Urine Nitrite NEGATIVE (NEGATIVE) Urine Bilirubin NEGATIVE (NEGATIVE) Urine Urobilinogen 0.2 (<2.0) EU/dL Ur Leukocyte Esterase NEGATIVE (NEGATIVE) Urine RBC 3-5 (0-2/HPF) Urine WBC 0-1 (0-5/HPF) Ur Epithelial Cells RARE (NONE-FEW) Urine Bacteria RARE (NEGATIVE) Blood Type Antibody Screen 06/23/20 06/23/20 Range/Units 15:30 15:30 WBC (4.0-11.0) K/uL RBC (4.30-5.90) M/uL Hgb (12.0-16.0) g/dL Hct (36.0-46.0) % MCV (80.0-98.0) fL MCH (27.0-32.0) pg MCHC (31.0-37.0) g/dL RDW Std Deviation (28.0-62.0) fl RDW Coeff of Ángel (11.0-15.0) % Plt Count (150-400) K/uL MPV (7.40-12.00) fL Neut % (Auto) (48.0-80.0) % Lymph % (Auto) (16.0-40.0) % Stearns % (Auto) (0.0-15.0) % Eos % (Auto) (0.0-7.0) % Baso % (Auto) (0.0-1.5) % Neut # (Auto) (1.4-5.7) K/uL Lymph # (Auto) (0.6-2.4) K/uL Stearns # (Auto) (0.0-0.8) K/uL Eos # (Auto) (0.0-0.7) K/uL Baso # (Auto) (0.0-0.1) K/uL Nucleated RBC % /100WBC Nucleated RBCs # K/uL Sodium (136-145) mmol/L Potassium (3.5-5.1) mmol/L Chloride (98-107) mmol/L Carbon Dioxide (21.0-32.0) mmol/L BUN (7.0-18.0) mg/dL Creatinine (0.6-1.0) mg/dL Est Cr Clr Drug Dosing mL/min Estimated GFR (MDRD) ml/min Glucose (74-106) mg/dL Calcium (8.5-10.1) mg/dL Total Bilirubin (0.2-1.0) mg/dL AST (15-37) IU/L ALT (14-63) IU/L Alkaline Phosphatase (46-116) U/L Total Protein (6.4-8.2) g/dL Albumin (3.4-5.0) g/dL Globulin (2.6-4.0) g/dL Albumin/Globulin Ratio (0.9-1.6) HCG, Quant mIU/mL Urine Color Urine Appearance Urine pH (5.0-8.0) Ur Specific Pierre Part (1.001-1.035) Urine Protein (NEGATIVE) mg/dL Urine Glucose (UA) (NEGATIVE) mg/dL Urine Ketones (NEGATIVE) mg/dL Urine Occult Blood (NEGATIVE) Urine Nitrite (NEGATIVE) Urine Bilirubin (NEGATIVE) Urine Urobilinogen (<2.0) EU/dL Ur Leukocyte Esterase (NEGATIVE) Urine RBC (0-2/HPF) Urine WBC (0-5/HPF) Ur Epithelial Cells (NONE-FEW) Urine Bacteria (NEGATIVE) Blood Type Cancelled A NEGATIVE Antibody Screen Cancelled NEGATIVE Meds: Medications Discontinued Medications Generic Name Dose Route Start Last Admin Trade Name Freq PRN Reason Stop Dose Admin Sodium Chloride 1,000 mls @ 999 mls/hr 06/23/20 14:53 06/23/20 15:40 Normal Saline IV 06/23/20 15:53 Not Given STAT ONE Sodium Chloride 10 ml 06/23/20 14:53 Saline Flush FLUSH ASDIRECTED PRN Keep Vein Open Sodium Chloride 2.5 ml 06/23/20 14:53 Saline Flush FLUSH ASDIRECTED PRN Keep Vein Open Departure - Departure Time of Disposition: 18:58 Disposition: Home, Self-Care 01 Clinical Impression: Threatened miscarriage - Discharge Information Instructions: Threatened Miscarriage, [id number] Referrals: Emely Guerra MD [Primary Care Provider] - Forms: ED Department Discharge Additional Instructions: The following information is given to patients seen in the emergency department who are being discharged to home. This information is to outline your options for follow-up care. We provide all patients seen in our emergency department with a follow-up referral. The need for follow-up, as well as the timing and circumstances, are variable depending upon the specifics of your emergency department visit. If you don't have a primary care physician on staff, we will provide you with a referral. We always advise you to contact your personal physician following an emergency department visit to inform them of the circumstance of the visit and for follow-up with them and/or the need for any referrals to a consulting specialist. The emergency department will also refer you to a specialist when appropriate. This referral assures that you have the opportunity for follow-up care with a specialist. All of these measure are taken in an effort to provide you with optimal care, which includes your follow-up. Under all circumstances we always encourage you to contact your private physician who remains a resource for coordinating your care. When calling for follow-up care, please make the office aware that this follow-up is from your recent emergency room visit. If for any reason you are refused follow-up, please contact the [facility] Emergency Department at and asked to speak to the emergency department charge nurse. [facility] [address] [place] [address] [place] [address] Thank you for choosing the [facility] emergency department in [place] for your medical needs today. It was a pleasure caring for you. Today you were seen in the emergency department for vaginal bleeding in . 1. Please start and/or continue to take your vitamin with folic acid on ce daily. 2. Pelvic rest until cleared by your OBGYN (no tampons, sex, etc...) 3. Tylenol as needed for pain management. 4. Follow up with your IT BUSINESS PROCESS ARCHITECT in the next 1-2 days. Their office should be call ing you tomorrow morning to set up your appointment. 5. As we discussed, please return to the ED if your symptoms should worsen, new symptoms develop or anything should change. Sepsis Event Note (ED) - Focused Exam Vital Signs: Vital Signs Temp Pulse Resp BP Pulse Ox 06/23/20 14:57 97 F 80 16 112/53 L 97 - My Orders Last 24 Hours: My Active Orders 06/23/20 15:30 RH IMMUNE GLOBULIN [BBK] Stat RHOGAM, [RHIG WORKUP, ] [BBK] Stat - Assessment/Plan Last 24 Hours: My Active Orders 06/23/20 15:30 RH IMMUNE GLOBULIN [BBK] Stat RHOGAM, [RHIG WORKUP, ] [BBK] Stat
[2020-06-23 16:32] LABS: BLOOD UREA NITROGEN,BUN 10 mg/dL (7.0-18.0); CARBON DIOXIDE,CO2 23.7 mmol/L (21.0-32.0); CHLORIDE,CL 101 mmol/L (98-107); GLUCOSE RANDOM 83 mg/dL (74-106); POTASSIUM,K 3.6 mmol/L (3.5-5.1); SODIUM,NA 135 mmol/L (136-145)
--- NOTE | 2020-06-23 18:25 | US ---
INDICATION: First trimester scan, establish dates. TECHNIQUE: Real-time briones-scale imaging of the pelvis was performed. FINDINGS: Presence of intrauterine with intrauterine gestational sac. [place]-rump length measures 5.9 cm corresponding to 12 weeks 3 days. Positive cardiac activity measures 129 beats per minute. Moderate perigestational hemorrhage that is located along the placental edge. Both ovaries are seen and unremarkable. IMPRESSION: 1. Live intrauterine gestation with crown-rump length measuring 5.9 centimeters corresponding to 12 weeks 3 days TOMA of 01/02/2021. Positive cardiac activity measures 129 beats per minute. 2. Moderate perigestational hemorrhage with hemorrhage located along the placental margin. Recommend close follow-up. Dictated by Chata Aguiar MD @ Jun 23 2020 6:07PM Signed by Dr. Chata Aguiar @ Jun 23 2020 6:25PM
== END 2020-06-23 19:38 | disposition home or self-care (01) ==
LOC: MW.ED 14:48
DX: O20.0 Threatened abortion (principal); Z88.0 Allergy status to penicillin; Z79.899 Other long term (current) drug therapy; Z3A.12 12 weeks gestation of pregnancy
CPT/HCPCS: 36415; 76801; 80053; 81001; 84702; 85025; 86850; 86900; 86901; 99284; J2792; 36430; 99283

== ENCOUNTER 2022-07-26 09:04 | Emergency (ER) | payer BC ==
[2022-07-26] MEDS ORDERED: Ibuprofen 600 MG Tab PO ONE (09:33)
== END 2022-07-26 10:53 | disposition home or self-care (01) ==
LOC: MW.ED 09:04
DX: M25.531 Pain in right wrist (principal); Z88.0 Allergy status to penicillin; X50.0XXA Overexertion from strenuous movement or load, initial encounter
CPT/HCPCS: 73110; 99283; A9270